=== PATIENT | male | born 1965 | race Caucasian/White ===

== ENCOUNTER 2019-04-25 13:23 | Outpatient (CLI) | payer OTHER ==
--- NOTE | 2019-04-25 15:30 | PET ---
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 Findings: PET CT from skull to mid thigh was performed after the intravenous administration of 12.9 m Ci FDG. There is abnormal increased FDG uptake within the right palatine tonsil with SUV max 21.56. There is metastatic increased uptake within a right level 2A lateral cervical lymph node which measures 1.3 cm in short axis with SUV max 11.37. No other cervical adenopathy. No contralateral vocal cervical ad enopathy. No mediastinal adenopathy. No retroperitoneal adenopathy. No focal abnormal area of cranial uptake. Thyroid is unremarkable. Heart size mildly enlarged. Mild atelectasis in the lung bases. No dilated loops of large or small bowel. Moderate diverticular disease sigmoid colon without active current inflammation. The appendix is visualized and is normal. There is abnormal expansile appearance of the right superio r pubic ramus extending into the pubic body with the appearance of fibrous dysplasia. This does not have increased FDG avidity. 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 No hydronephrosis. No renal calcifications. No ane urysmal dilatation of the aorta. 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 No contralateral cervical metastatic disease. No distal metastatic disease.
== END 2019-04-25 13:24 | disposition home or self-care (01) ==
LOC: PET 13:23
PROVIDERS: ATTEND Radiology Radiation Oncology
DX: C09.9 Malignant neoplasm of tonsil, unspecified (principal); C77.0 Secondary and unspecified malignant neoplasm of lymph nodes of head, face and neck
CPT/HCPCS: 78815; A9552

== ENCOUNTER 2019-09-15 07:21 | Outpatient (CLI) | payer OTHER ==
--- NOTE | 2019-09-15 12:29 | PET ---
Radionucleotide PET with CT attenuation correction and SPECT imaging HISTORY: Squamous cell carcinoma right tonsil. Restaging. COMPARISON: 04/25/2019. FINDINGS: Physiologic uptake of radiotracer throughout the enteric system and along each urinary trac t. Slight increase in muscular uptake around the left shoulder. At the right palatine tonsil, maximum SUV is now 2.7 (previously 21.6). In the area of previously hypermetabolic right cervical lymph node, maximum SUV is now 2.3 (previousl y 11.4). No new areas of hypermetabolic activity are apparent. Nondiagnostic CT attenuation correction images again show scattered areas of granulomatous disease an d fatty liver. Vascular calcifications. Diverticulosis without evidence of diverticulitis. Coarsened sclerosis of the right side of the pubic symphysis is stable and may be related to old trau ma. IMPRESSION: Near complete response to therapy with minimal residual hypermetabolic activity associate d with the right palatine tonsil. No evidence of metastatic disease.
== END 2019-09-15 07:22 | disposition home or self-care (01) ==
LOC: PET 07:21
PROVIDERS: ATTEND Radiology Radiation Oncology
DX: C09.9 Malignant neoplasm of tonsil, unspecified (principal)
CPT/HCPCS: 78815; A9552